=== PATIENT | female | born 1990 | race Caucasian/White ===

== ENCOUNTER 2017-10-12 13:52 | Outpatient (CLI) | payer BC ==
[2017-10-12 14:17] VITALS: BP 131/66; TEMP 98.3
[2017-10-12 14:35] LABS: Appearance,Urine Cloudy (Clear); Bacteria,Urine Occasional /hpf; Bilirubin,Urine Negative (Negative); Blood,Urine Moderate (Negative); Color,Urine Yellow; Glucose,Urine (UA) Negative (Negative); Ketones,Urine 3+ (Negative); Leukocyte Esterase,Urine Moderate (Negative); Mucus,Urine Many /hpf; Nitrite,Urine Negative (Negative); Protein,Urine 1+ (Negative); RBC,Urine 14 /hpf (0-5); Specific Gravity,Urine 1.021 (1.001-1.035); Squamous Epithelial Cell,Urine 22 /hpf (0-4); Urobilinogen,Urine <2.0 mg/dL (<2.0); WBC,Urine 8 /hpf (0-5)
[2017-10-12] MEDS ORDERED: ONDANSETRON 4 MG/2 ML VIAL IVP STA (14:40)
[2017-10-12] MEDS ORDERED: LACTATED RINGERS 1,000 ML IV ONE (14:45)
[2017-10-12 15:27] VITALS: PULSE 95; RESP 17
[2017-10-12] MEDS ORDERED: LACTATED RINGERS 1,000 ML IV SCH (15:30)
--- NOTE | 2017-10-14 10:30 | P.MSEPDOC ---
Presenting Problems - Arrival Data Date of Arrival on Unit: 10/12/17 Time of Arrival on Unit: 13:48 Mode of Transport: Ambulatory - Complaint OB-Reason for Admission/Chief Complaint: Possible Onset of Labor, Acute Nausea/ Vomiting, Visual Disturbances, Other Comment: diahrea al starting last night. son had flu a couple of days ago. Medical History - Information : 3 Para: 2 Term: 2 : 0 Abortions: Spontaneous or Elective: 0 Number of Living Children: 2 - Gestational Age Gestational Age by ELIJAH (wks/days): 37 Weeks and 5 Days Review of Systems - Review of Systems Constitutional: No problems Breast: No problems ENT: No problems Cardiovascular: No problems Respiratory: No problems Gastrointestinal: Diarrhea Genitourinary: No problems Musculoskeletal: No problems Neurological: Dizziness Skin: No problems Comment: hx of colitis and pancreatitis Vital Signs - Temperature Temperature: 98.3 F Temperature Source: Tympanic - Pulse Apical Pulse Rate: 95 Pulse Assessment Method: Pulse Oximetry - Respirations Respiratory Rate: 17 Oxygen Delivery Method: Room Air O2 Sat by Pulse Oximetry: 99 - Blood Pressure Right Arm Blood Pressure: 131/66 Blood Pressure Mean: 87 Blood Pressure Source: Automatic Cuff Medical Screen Scoring (Pre) - Cervical Exam Dilation: 1-3 cm = 1 Effacement: Exam Deferred Membranes: Intact - Uterine Contractions Frequency: > 5 minutes apart = 1 Duration: > 40 seconds = 2 Intensity: N/A - Maternal Vital Signs Maternal Temperature: N/A Maternal Blood Pressure: N/A Signs of Preeclampsia: N/A Maternal Respirations: N/A - Pain Assessment Pain Location and Character: Abdomen Pain Scale Used: Numeric (1 - 10) Pain Intensity: 3 Pain Management Goal: 2 Pain Description: Cramping - Maternal Trauma Maternal Trauma: N/A - Assessment Baseline FHR: 129 Heart Rate - NICHD Category: Category I (Normal) = 0 NST: Reactive Position: N/A Station: N/A - Total Score Total Score (Pre): 4 - Level of Risk Level of Risk: Low (0-5) Physician Notification (Pre) - Physician Notified Physician Notified Date: 10/12/17 Physician Notified Time: 14:30 Physician/Practitioner Notifed:: martin Spoke With: martin New Order Received: Yes Medical Screen Scoring (Post) - Cervical Exam Dilation: 1-3 cm = 1 Membranes: Intact - Uterine Contractions Frequency: > or = 36 weeks =2 Duration: N/A Intensity: N/A - Maternal Vital Signs Maternal Temperature: N/A Maternal Blood Pressure: N/A Signs of Preeclampsia: N/A Maternal Respirations: N/A - Pain Assessment Pain Location and Character: Abdomen Pain Scale Used: Numeric (1 - 10) Pain Intensity: 3 Pain Management Goal: 0 Pain Description: Cramping Pain Radiation Location: n/a Pain Frequency: Intermittent Pain Duration: 11.5 Pain Duration Units: Hours Pain Behavior: Vocalization Effects of Pain: n/a Pain Aggravating Factors: Contractions Pharmacological Interventions: PRN Medication Non-Pharmacological Interventions: Distraction - Maternal Trauma Maternal Trauma: N/A - Assessment Heart Rate: 145 Heart Rate - NICHD Category: Category I (Normal) = 0 NST: Reactive Position: N/A Station: N/A - Total Score Total Score (Post): 3 - Post Treatment Level of Risk Post Treatment Level of Risk: Low (0-5) Physician Notification (Post) - Physician Notified Physician Notified Date: 10/12/17 Physician Notified Time: 14:36 Physician/Practitioner Notified:: Martin Spoke With: Martin New Order Received: Yes (IV start, LR bolus of 2 liters, zofran 4mg once, and d/ c order if change) Disposition - Disposition OB Disposition: Triage Discharge Date: 10/12/17 Discharge Time: 15:55 I agree with the RN Medical Screening Exam: Yes Risk & Benefit of care provided described in d/c instruction: Yes Diagnosis: DEHYDRATION
== END 2017-10-12 15:55 | disposition home or self-care (01) ==
LOC: FBPOP 13:52
PROVIDERS: ATTEND Obstetrics & Gynecology
DX: O21.2 Late vomiting of pregnancy (principal); E86.0 Dehydration; Z3A.37 37 weeks gestation of pregnancy
CPT/HCPCS: 59025; 99214; 96361; 96367; 96374; 81001; J2405

== ENCOUNTER 2017-10-22 06:00 | Inpatient (IN) | payer BC, OTHER ==
[2017-10-22] MEDS ORDERED: LIDOCAINE 1% (PF) 10 MG/ML (30 ML SDV) SQ PRN (06:39)
[2017-10-22] MEDS ORDERED: METHYLERGONOVINE 0.2 MG/ML 1 ML AMP IM PRN (06:39)
[2017-10-22] MEDS ORDERED: CARBOPROST TROMETHAMINE 250 MCG/ML 1 ML AMP IM PRN (06:39)
[2017-10-22] MEDS ORDERED: OXYTOCIN 10 UNIT/ML 1 ML VIAL IM PRN (06:39)
[2017-10-22] MEDS ORDERED: TERBUTALINE 1 MG/ML VIAL SQ PRN (06:39)
[2017-10-22 06:45] VITALS: BMI 29.5
[2017-10-22] MEDS ORDERED: OXYTOCIN 20 UNITS/1000 ML NS 1,000 ML IV SCH ×2 (06:45→12:00)
[2017-10-22] MEDS ORDERED: LACTATED RINGERS 1,000 ML IV SCH (06:45)
[2017-10-22] MEDS ORDERED: PENICILLIN G POTASSIUM 5,000,000 UNIT in DEXTROSE 5% IN WATER 100 ML IVPB ONE ×2 (07:00)
[2017-10-22 07:05] LABS: Basophils % (A) 0 %; Eosinophils # (A) 0.1 k/uL (0-0.7); Eosinophils % (A) 1 %; HCT 29.8 % (34.0-46.0); HGB 9.9 gm/dL (11.4-16.0); Lymphocytes # (A) 2.2 k/uL (1.0-4.8); Lymphocytes % (A) 30 %; MCH 28.1 pg (25.0-35.0); MCHC 33.1 g/dL (31.0-37.0); MCV 84.9 fL (80.0-100.0); Mean Platelet Volume 7.6; Monocytes # (A) 0.4 k/uL (0-1.0); Monocytes % (A) 6 %; Neutrophils # (A) 4.4 k/uL (1.3-7.7); Neutrophils % (A) 60 %; Platelet Count 190 k/uL (150-450); RBC 3.51 m/uL (3.80-5.40); RDW 13.2 % (11.5-15.5); WBC 7.4 k/uL (3.8-10.6)
[2017-10-22] MEDS: LACTATED RINGERS 1,000 ML IV SCH ×2 (07:33→21:46)
[2017-10-22] MEDS ORDERED: BUTORPHANOL 1 MG/ML 1 ML VIAL IV PRN (08:46)
--- NOTE | 2017-10-22 08:52 | P.HPOB ---
History of Present Illness H&P Date: 10/22/17 Chief Complaint: 39 and one sevenths, elective induction The patient is a 27-year-old 3 para 2001 admitted at 39 and one sevenths weeks as established by 20 week ultrasound. She is admitted for elective induction of labor with all signs reassuring. Her has been uncomplicated though group B strep status is positive. Obstetrical history: 3 para 200 to with 2 term vaginal deliveries without complications. EDC of 10/28/2017 was established by a 20 week ultrasound. Laboratory workup demonstrates a blood type of O+ with a negative antibody screen. Rubella status is immune. The remainder of the laboratory workup was within normal limits. One hour Glucola was within normal limits and group B strep status is positive. Gynecologic history: Unremarkable with no history of any infections to include STDs. Review of Systems Review of systems is confined to history of present illness. Past Medical History Additional Past Medical History / Comment(s): colitis, pancreatitis. Obstetric history: First she had a termination. Second was a normal vaginal delivery 6#8oz in 2009. This is her third and she has had care with [facility] since 10 weeks gestation. O+, abs neg, Rub Imm, RPR NR, Hep B neg, GBS neg, normal 1hr GTT. normal anatomy US. History of Any Multi-Drug Resistant Organisms: None Reported Past Surgical History: No Surgical Hx Reported Additional Past Surgical History / Comment(s): colitis, pancreatitis Past Anesthesia/Blood Transfusion Reactions: No Reported Reaction Past Psychological History: No Psychological Hx Reported Smoking Status: Former smoker Past Alcohol Use History: None Reported Past Drug Use History: None Reported - Past Family History Mother Family Medical History: No Reported History Medications and Allergies Home Medications Medication Instructions Recorded Confirmed Type Fmy-Alhn-Vxume Acid 1 each PO DAILY 03/01/15 10/22/17 History [-U Capsule] Ranitidine HCl [Zantac] 1 tab PO DAILY MDD 1 10/12/17 10/22/17 History Allergies Allergy/AdvReac Type Severity Reaction Status Date / Time No Known Allergies Allergy Verified 10/12/17 13:58 Exam - Vital Signs Vital signs: Vital Signs Temp Pulse Resp BP Pulse Ox 10/22/17 06:40 96.6 F L 77 16 130/70 100 Intake and Output 10/21/17 10/22/17 10/22/17 22:59 06:59 14:59 Other: Weight 75.75 kg In general, this is a well-developed, well-nourished white female in no acute distress. Her heart has a regular rhythm and rate without murmur. Her lungs are clear to auscultation bilaterally in all abarca. Her abdomen is gravid, nondistended, has normal active bowel sounds, is soft, nontender, and without any palpable masses aside from uterine fundus. Her extremities are without any cyanosis, clubbing, or significant edema and are nontender to palpation bilaterally. Digital cervical examination on straights her cervix to be 3+ centimeters dilated, 50 should effaced, the vertex in presentation at -2 station. Artificial rupture of membranes is carried out demonstrating clear fluid. Results Result Diagrams: 10/22/17 06:50 Abnormal Lab Results - Last 24 Hours (Table) 10/22/17 Range/Units 06:50 RBC 3.51 L (3.80-5.40) m/uL Hgb 9.9 L (11.4-16.0) gm/dL Hct 29.8 L (34.0-46.0) % Assessment and Plan (1) Group B streptococcal infection in Current Visit: Yes Status: Acute Code(s): O98.819 - OTH MATERNAL INFEC/ PARASTC DISEASES COMP PREG, UNSP TRI; B95.1 - STREPTOCOCCUS, GROUP B, CAUSING DISEASES CLASSD [id number] SNOMED Code(s): 523833125 (2) Term Current Visit: Yes Status: Acute Code(s): Z34.80 - ENCOUNTER FOR SUPRVSN OF NORMAL , UNSP TRIMESTER SNOMED Code(s): 38076148 Plan: The patient is admitted for elective induction of labor. The risks and complications elective induction have been thoroughly discussed including the potential for a slightly increased risk of . She has understood this and agreed to proceed. As result, Pitocin augmentation has been started. She will continue to have close maternal and surveillance and expectant management will be practiced. She is a good candidate for either IV or epidural analgesia, whichever she may choose.
[2017-10-22] MEDS ORDERED: BUPIVACAINE (PF) 0.25% 30 ML VIAL ONE (09:35)
[2017-10-22] MEDS ORDERED: SODIUM CHLORIDE 0.9% 100 ML BAG ONE (09:35)
[2017-10-22] MEDS ORDERED: fentaNYL (PF) 50 MCG/ML 5 ML AMP ONE (09:35)
[2017-10-22] MEDS ORDERED: BUPIVACAINE (PF) 0.25% 25 ML, fentaNYL (PF) 200 MCG in SODIUM CHLORIDE 0.9% 71 ML EPIDURAL ONE (09:40)
[2017-10-22] MEDS: PENICILLIN G POTASSIUM 2,500,000 UNIT in DEXTROSE 5% IN WATER 100 ML IVPB SCH ×4 (11:18→21:47)
[2017-10-22] MEDS ORDERED: ACETAMINOPHEN TAB 325 MG TAB PO PRN (11:58)
[2017-10-22] MEDS ORDERED: diphenhydrAMINE 50 MG CAP PO PRN (11:58)
[2017-10-22] MEDS ORDERED: HYDROCORTISONE 2.5% RECTAL CREAM 30 GM TUBE RECTAL PRN (11:58)
[2017-10-22] MEDS ORDERED: BENZOCAINE/MENTHOL SPRAY 1 GM/SPRAY AEROSOL TOPICAL PRN (11:58)
[2017-10-22] MEDS ORDERED: SIMETHICONE 80 MG CHEWABLE PO PRN (11:58)
[2017-10-22] MEDS ORDERED: WITCH HAZEL 1 EACH MED..PAD TOPICAL PRN (11:58)
[2017-10-22] MEDS ORDERED: ZOLPIDEM 5 MG TAB PO PRN (11:58)
[2017-10-22] MEDS ORDERED: diphenhydrAMINE 50 MG/ML 1 ML VIAL IVP PRN ×2 (11:58)
[2017-10-22] MEDS ORDERED: HYDROcodone/APAP 5-325MG 1 EACH TAB PO PRN (11:58)
[2017-10-22] MEDS ORDERED: diphenhydrAMINE 25 MG CAP PO PRN (11:58)
--- NOTE | 2017-10-22 12:02 | P.PROBDLV ---
Vaginal Delivery Note - . Vaginal Delivery Note: The patient is a 27-year-old 3 para 2 scissors or 2 admitted at 39 and one sevenths weeks by good dating parameters. She is admitted for elective induction of labor with all signs reassuring. Her has been uncomplicated though she is group B strep positive. As result, antibiotic prophylaxis was started as was Pitocin augmentation. She underwent artificial rupture of membranes demonstrating clear fluid. She had an epidural catheter placed at the onset of the active phase of labor. She then progressed fairly quickly through the active phase to complete and +1 station. She pushed over the course of 2 contractions to a normal spontaneous vaginal delivery of a viable 6 lbs. 13 oz. baby girl with Apgars of 9 at 1 minute and 10 at 5 minutes delivered in the direct occiput anterior position. The placenta was delivered spontaneously, intact, and grossly normal with a grossly normal, centrally inserted three-vessel cord. There were no lacerations of the perineum, vagina, or cervix. All sponge, instrument, and needle counts were correct. Estimated blood loss is 150 mL. Both mother and are resting comfortably in recovery.
[2017-10-22] MEDS: IBUPROFEN 600 MG TAB PO PRN ×2 (15:03→20:37)
[2017-10-22] MEDS: SENNOSIDES-DOCUSATE SODIUM 1 EACH TAB PO SCH (19:32)
[2017-10-23] MEDS: IBUPROFEN 600 MG TAB PO PRN ×2 (05:04→10:44)
[2017-10-23 08:38] VITALS: BP 120/75; PULSE 52; RESP 16; TEMP 98
[2017-10-23] MEDS: SENNOSIDES-DOCUSATE SODIUM 1 EACH TAB PO SCH (10:44)
--- NOTE | 2017-10-23 10:45 | P.DS ---
Providers Date of admission: 10/22/17 06:36 Expected date of discharge: 10/23/17 Attending physician: Terence Jacobo - Discharge Diagnosis(es) (1) Group B streptococcal infection in Current Visit: Yes Status: Acute (2) Term Current Visit: Yes Status: Acute (3) Normal spontaneous vaginal delivery Current Visit: Yes Status: Acute Hospital Course: The patient is a 27-year-old 3 para 2002 admitted at 39 and one sevenths weeks by good dating parameters. She is admitted for an elective induction with all signs reassuring. Her was uncomplicated though she was group B strep positive. As result, she had antibody prophylaxis started as well as Pitocin augmentation. She then underwent artificial rupture of membranes demonstrating clear fluid. She had an epidural catheter placed for analgesia and made rapid progress through the active phase of labor to complete. She then pushed to a normal spontaneous vaginal delivery of a viable 6 lbs. 13 oz. baby girl with Apgars of 9 at 1 minute and 10 at 5 minutes. Her course was unremarkable with vital signs remaining stable and her temperature was afebrile throughout. She was deemed stable for discharge by day #1 and was discharged home to follow-up in the office in 6 weeks ' time routinely. Discharge instructions included calling for any significantly increased bleeding or foul-smelling lochia, significantly increased fever abdominal pain, perineal complaints, breast complaints, or anything else that concerned her. She was additionally instructed to have nothing in the vagina to include intercourse for at least 6 weeks time. She understood her instructions and agrees to follow up as noted above. Discharge medications included [id number] analgesic pain medications. She has chosen not to breast-feed. Maternal blood type is O+ and rubella status is immune. Procedures: #1. Pitocin induction #2. Antibiotic prophylaxis #3. Artificial rupture of membranes #4. Epidural analgesia #5. Normal spontaneous vaginal delivery Patient Condition at Discharge: Good Plan - Discharge Summary New Discharge Prescriptions: No Action Uub-Svlf-Ctxyh Acid [-U Capsule] 1 each PO DAILY Ranitidine HCl [Zantac] 1 tab PO DAILY MDD 1 Discharge Medication List Xms-Vgsr-Ogtmm Acid [-U Capsule] 1 each PO DAILY 03/01/15 [ History] Ranitidine HCl [Zantac] 1 tab PO DAILY MDD 1 10/12/17 [History] Follow up Appointment(s)/Referral(s): Terence Jacobo MD [STAFF PHYSICIAN] - 6 Weeks Discharge Disposition: HOME SELF-CARE
== END 2017-10-23 15:15 | disposition home or self-care (01) | DRG 775 ==
LOC: 4FBP 06:36
PROVIDERS: ADMIT Obstetrics & Gynecology; ATTEND Obstetrics & Gynecology
PROC: 10E0XZZ Delivery of Products of Conception, External Approach (ICD-10-PCS; principal; 2017-10-22)
PROC: 00HU33Z Insertion of Infusion Device into Spinal Canal, Percutaneous Approach (ICD-10-PCS; 2017-10-22)
PROC: 3E0R3NZ Introduction of Analgesics, Hypnotics, Sedatives into Spinal Canal, Percutaneous Approach (ICD-10-PCS; 2017-10-22)
PROC: 3E033VJ Introduction of Other Hormone into Peripheral Vein, Percutaneous Approach (ICD-10-PCS; 2017-10-22)
PROC: 10907ZC Drainage of Amniotic Fluid, Therapeutic from Products of Conception, Via Natural or Artificial Opening (ICD-10-PCS; 2017-10-22)
DX: O99.824 Streptococcus B carrier state complicating childbirth (principal); Z37.0 Single live birth; Z3A.39 39 weeks gestation of pregnancy; Z87.891 Personal history of nicotine dependence; Z79.899 Other long term (current) drug therapy
CPT/HCPCS: 85025; 88307

== ENCOUNTER → 2020-01-27 | Outpatient (CLI) | payer BC, OTHER | END | disposition home or self-care (01) | LOC: LABWHC1 14:39 | PROVIDERS: ATTEND Nurse Practitioner | DX: Z20.828 Contact with and (suspected) exposure to other viral communicable diseases (principal) | CPT/HCPCS: U0003; C9803 ==